=== PATIENT | female | born 1985 | race Caucasian/White ===

== ENCOUNTER 2021-07-24 23:10 | Emergency (ER) | payer OTHER ==
[~2021-07-24] VITALS: Ht 162.6 cm; Wt 95.3 kg
[~2021-07-24 23:10] MED LIST: PROTONIX40 MG PO; RAYOS5 MG
[2021-07-24] MEDS ORDERED: FOLIC ACID20 MG (23:38)
[2021-07-24] MEDS ORDERED: BIOTIN1 M1 (23:39)
[2021-07-24] MEDS ORDERED: ZOFRAN8 MG (23:39)
[2021-07-25] MEDS ORDERED: SANTYL OINT.30 GM TOP (01:53)
== END 2021-07-25 02:24 ==
LOC: ER 23:10
DX: S90.812A Abrasion, left foot, initial encounter (principal); X58.XXXA Exposure to other specified factors, initial encounter; Y93.89 Activity, other specified; Y92.89 Other specified places as the place of occurrence of the external cause